=== PATIENT | female | born 1990 | race African-American/Black ===

== ENCOUNTER 2017-07-11 00:11 | Emergency (ER) | payer OTHER ==
[2017-07-11 00:17] VITALS: BP 120/81; BMI 19.1
--- NOTE | 2017-07-11 00:32 | DR.GENAD ---
HPI - PCP Primary Care Physician: DELLA - HPI Comment HPI Comment: HISTORY BELOW. - Complaint/Symptoms Chief Complaint Doctors Comments: ABDOMINAL PAIN, DIARRHEA AND NAUSEA TIMES 2 WEEKS. FEEL DISCOMFORT IN AREA. NO REDNESS OR DRAINAGE. PATIENT CONCERN IT MAY BE INFECTED. C- SECTION WAS DONE 06/26/2017. Chief Complaint:: "ON 877810, EMERGENCY C SECTION . INCISION SITE INFECTED. WARM , TENDER. HAVING DIARRHEA , NAUESA AND PAIN BC I GOT FOOD POISONING ON THE [id number]." - Nurses notes reviewed Nurses Notes Review: Yes - Source History Provided: Patient - Mode of Arrival Mode of Arrival: Wheelchair - Timing Onset of Chief Complaint: 07/11/17 Came on: Suddenly - Duration Duration: Constant Duration: Hours - Severity Severity: Moderate PMH - PMH Past Medical History: Yes Past Medical History: Hypertension, Seizures Past Surgical History: Yes Surgical History: , Cholecystectomy Past Surgical History Comment: OPEN HEART SURGERY AT 11 days old - Family History History of Family Medical Conditions: No - Social History Type of Tobacco Use: Cigarettes Alcohol Use: None Do you use any recreational Drugs:: No Lives With: Family Lives Where: Home - infectious screening Have you traveled outside the country in the last 6 months?: No Isolation: Standard ROS - Review of Systems Constitutional: No Symptoms Reported. negative: Chills, Fever Eyes: No Symptoms Reported ENTM: No Symptoms Reported Respiratoy: No Symptoms Reported Cardiovascular: No Symptoms Reported Gastrointestinal/Abdominal: Abdominal Pain, Diarrhea, Nausea Genitourinary: No Symptoms Reported Neurological: No Symptoms Reported Musculoskeletal: No Symptoms Reported Integumentary: Wound (INFECTION.) Hematologic/Lymphatic: No Symptoms Reported Endocrine: No Symptoms Reported All Other Systems: Reviewed and Negative PE - Vital Signs Vitals: Temperature 98.9 F Pulse Rate 95 Respiratory Rate 18 Blood Pressure 120/81 O2 Sat by Pulse Oximetry 97 - General Limitations: No Limitations General Appearance: Alert - Head Head Exam: Normal Inspection - Eyes Eye exam: Normal Appearance - ENT ENT Exam: Normal External Ear Exam External Ear Exam: Normal External Inspection TM/Canal Exam: Bilateral Normal Nose Exam: Normal Nose Exam Mouth Exam: Normal Inspection Throat Exam: Tonsillar Erythema - Neck Neck Exam: Normal Inspection - Chest Chest Inspection: Symmetric Chest Wall Rise - Respiratory Respiratory Exam: Normal Lung Sounds Bilat Respiratory Exam: Bilateral Clear to Auscultation - Cardiovascular Cardiovascular Exam: Regular Rate, Normal Rhythm, Normal Heart Sounds - Abdominal Exam Abdominal Exam: Normal Bowel Sounds, Soft, Tenderness Abdominal Tenderness: Diffuse, Mild, Other (C SECTION WOUND WITH STERI STRIP IN SOME AREA. NO REDNESS OR DRAINAGE NOTED. AREA SLIGHTLY TENDER.) - Extremities Extremities Exam: Normal Inspection - Back Back Exam: Normal Inspection - Neurologic Neurological Exam: Alert, Oriented X3 - Psychiatric Psychiatric Exam: Anxious - Skin Skin Exam: Normal Color MDM - Differential Diagnosis Differential Diagnosis: GASTROENTERITIS, ABDOMINAL PAIN, BOWEL OBSTRUCTION, FLU Course - Treatment Treatment: SEE ORDERS. - Reevaluation 1st: Improved - Education/Counseling Education/Counseling: Patient, Education Educated On: Treatment, Diagnosis, Needs for Follow Up ROR - Labs Reviewed Laboratory Results Reviewed?: Yes Result Diagrams: 07/11/17 01:00 07/11/17 01:00 Laboratory: 07/11/17 00:45 Stool - Final WBC 9.4 X10^3/uL (3.6-10.0) 07/11/17 01:00 RBC 3.89 X10^6/uL (3.5-5.4) 07/11/17 01:00 Hgb 11.7 g/dL (12.0-16.0) L 07/11/17 01:00 Hct 34.6 % (36.0-47.0) L 07/11/17 01:00 MCV 89.0 fL (80.0-100.0) 07/11/17 01:00 MCH 30.0 pg (27.0-34.0) 07/11/17 01:00 MCHC 33.8 g/dL (33.0-35.0) 07/11/17 01:00 RDW 13.5 % (11.6-16.5) 07/11/17 01:00 Plt Count 342 X10^3/uL (150.0-450.0) 07/11/17 01:00 MPV 7.9 fL (7.4-11.0) 07/11/17 01:00 Neut % 59.2 % (42.0-75.0) 07/11/17 01:00 Lymph % 28.5 % (21.0-51.0) 07/11/17 01:00 [place] % 8.1 % (0.0-13.0) 07/11/17 01:00 Eos % 3.1 % (0.9-2.9) H 07/11/17 01:00 Baso % 1.1 % (0.2-1.0) H 07/11/17 01:00 Neut # 5.6 x10^3/uL (2.2-4.8) H 07/11/17 01:00 Lymph # 2.7 X10^3/uL (1.3-2.9) 07/11/17 01:00 [place] # 0.8 x10^3/uL (0.3-0.8) 07/11/17 01:00 Eos # 0.3 x10^3/uL (0.0-0.2) H 07/11/17 01:00 Baso # 0.1 X10^3/uL (0.0-0.1) 07/11/17 01:00 Absolute Nucleated RBC 0.0 /100WBC 07/11/17 01:00 Sodium 139 mmol/L (136-145) 07/11/17 01:00 Corrected Sodium TNP 07/11/17 01:00 Potassium 3.9 mmol/L (3.5-5.1) 07/11/17 01:00 Chloride 105 mmol/L (98-107) 07/11/17 01:00 Carbon Dioxide 25.1 mmol/L (21-32) 07/11/17 01:00 BUN 11 mg/dL (7-18) 07/11/17 01:00 Creatinine 0.68 mg/dL (0.55-1.02) 07/11/17 01:00 Est GFR (MDRD) Af Amer > 60 (>60) 07/11/17 01:00 Est GFR (MDRD) Non-Af > 60 (>60) 07/11/17 01:00 Glucose 89 mg/dL (65-99) 07/11/17 01:00 Calcium 8.7 mg/dL (8.5-10.1) 07/11/17 01:00 Corrected Calcium 9.5 mg/dL (8.5-10.1) 07/11/17 01:00 Total Bilirubin 0.30 mg/dL (0.2-1.0) 07/11/17 01:00 AST 20 Units/L (15-37) 07/11/17 01:00 ALT 13 Units/L (12-78) 07/11/17 01:00 Alkaline Phosphatase 137 Units/L (46-116) H 07/11/17 01:00 Total Protein 7.3 g/dL (6.4-8.2) 07/11/17 01:00 Albumin 3.0 g/dL (3.4-5.0) L 07/11/17 01:00 Globulin 4.3 g/dL (2.5-4.5) 07/11/17 01:00 Albumin/Globulin Ratio 0.7 Ratio (1.1-2.1) L 07/11/17 01:00 Specimen Type Clean catch urine 07/11/17 02:39 Urine Color Yellow (YELLOW) 07/11/17 02:39 Urine Appearance Clear (CLEAR) 07/11/17 02:39 Urine pH 7.0 (5.0 - 8.0) 07/11/17 02:39 Ur Specific [place] 1.010 (1.000-1.030) 07/11/17 02:39 Urine Protein Negative (NEGATIVE) 07/11/17 02:39 Urine Glucose (UA) Negative (NEGATIVE) 07/11/17 02:39 Urine Ketones Negative (NEGATIVE) 07/11/17 02:39 Urine Occult Blood 2+ (NEGATIVE) 07/11/17 02:39 Urine Nitrite Negative (NEGATIVE) 07/11/17 02:39 Urine Bilirubin Negative (NEGATIVE) 07/11/17 02:39 Urine Urobilinogen Normal (NORMAL) 07/11/17 02:39 Ur Leukocyte Esterase 1+ (NEGATIVE) 07/11/17 02:39 Urine RBC Rare /HPF (NEGATIVE) 07/11/17 02:39 Urine WBC 0-2 /HPF (NEGATIVE) 07/11/17 02:39 Ur Squamous Epith Cells Few /HPF (NEGATIVE) 07/11/17 02:39 Urine Bacteria Trace /HPF (NEGATIVE) 07/11/17 02:39 Ur Culture Indicated? No/not indicated 07/11/17 02:39 Stool Description 50 g liquid/brown 07/11/17 00:45 Stl Occult Blood (IFOB) Negative (NEGATIVE) 07/11/17 00:45 Stool for White Cells Negative (NEGATIVE) 07/11/17 00:45 Stl C. diff Tox B Gene Negative (NEGATIVE) 12/24/17 00:45 Stl C. diff [id number] Negative (NEGATIVE) 07/11/17 00:45 Cryptosporid parvum Ag Negative (NEGATIVE) 07/11/17 00:45 E. histolytica Antigen Negative (NEGATIVE) 07/11/17 00:45 Giardia lamblia Ag Negative (NEGATIVE) 07/11/17 00:45 - XRAY XRAY Interpreted by: Radiologist XRAY Findings: REPORT DISCUSS WITH PATIENT. - Diagnosis Discharge Problem: Gastroenteritis, Nausea Abdominal pain Qualifiers: Abdominal location: generalized Qualified Code(s): R10.84 - Generalized abdominal pain Diarrhea Qualifiers: Diarrhea type: unspecified type Qualified Code(s): R19.7 - Diarrhea, unspecified - Discharge Plan Condition: Stable Prescriptions: Dicyclomine HCl [Bentyl Cap 10 mg] 10 mg PO TID PRN #15 cap PRN Reason: Diphenoxylate/Atropine [Lomotil] 1 tab PO TID #21 tab Ondansetron [Zofran ODT 8 mg] 8 mg PO Q8H PRN #12 tab PRN Reason: Nausea/Vomiting - Follow ups/Referrals Follow ups/Referrals: [facility],None [Primary Care Provider] - 3 days - Instructions Instructions: Viral Gastroenteritis, Adult, [id number], Abdominal Pain, Adult , [id number] Additional Instructions: RETURN TO ED IF WORSE.
[2017-07-11 01:11] LABS: BASOPHILS # (AUTO) 0.1 X10^3/uL (0.0-0.1); BASOPHILS % (AUTO) 1.1 % (0.2-1.0); EOSINOPHILS # (AUTO) 0.3 x10^3/uL (0.0-0.2); EOSINOPHILS % (AUTO) 3.1 % (0.9-2.9); HEMATOCRIT 34.6 % (36.0-47.0); HEMOGLOBIN 11.7 g/dL (12.0-16.0); LYMPHOCYTES # (AUTO) 2.7 X10^3/uL (1.3-2.9); LYMPHOCYTES % (AUTO) 28.5 % (21.0-51.0); MEAN CORPUSCULAR HGB CONC 33.8 g/dL (33.0-35.0); MEAN PLATELET VOLUME 7.9 fL (7.4-11.0); MONOCYTES # (AUTO) 0.8 x10^3/uL (0.3-0.8); MONOCYTES % (AUTO) 8.1 % (0.0-13.0); NEUTROPHILS # (AUTO) 5.6 x10^3/uL (2.2-4.8); NEUTROPHILS % (AUTO) 59.2 % (42.0-75.0); PLATELET COUNT 342 X10^3/uL (150.0-450.0); RED BLOOD COUNT 3.89 X10^6/uL (3.5-5.4); RED CELL DISTRIBUTION WIDTH 13.5 % (11.6-16.5); WHITE BLOOD COUNT 9.4 X10^3/uL (3.6-10.0)
[2017-07-11 01:24] LABS: ALANINE AMINOTRANSFERASE 13 Units/L (12-78); ALKALINE PHOSPHATASE 137 Units/L (46-116); ASPARTATE AMINO TRANSFERASE 20 Units/L (15-37); BLOOD UREA NITROGEN 11 mg/dL (7-18); CALCIUM 8.7 mg/dL (8.5-10.1); CARBON DIOXIDE 25.1 mmol/L (21-32); CHLORIDE 105 mmol/L (98-107); COR CA(FOR HYPOALB) 9.5 mg/dL (8.5-10.1); CREATININE 0.68 mg/dL (0.55-1.02); SODIUM 139 mmol/L (136-145); TOTAL PROTEIN 7.3 g/dL (6.4-8.2); eGFR BLACK RACES > 60 (>60); eGFR NON BLACK RACES > 60 (>60)
[2017-07-11 01:30] LABS: STOOL FOR WBC NEGATIVE (NEGATIVE)
--- NOTE | 2017-07-11 01:37 | RAD ---
Acute abdomen series three views Indication: History of recent with possible infection. Diarrhea and nausea. Findings: Chest radiograph is normal without pneumothorax, effusion or consolidation. Cholecystectomy clips noted. Gas and stool are seen in the colon. There is no free air or pneumatosis . No dilated loop of small bowel identified. Impression: No high-grade obstruction, free air or pneumatosis. Reported By:
[2017-07-11] MEDS ORDERED: TORADOL 60 MG VIAL IM ONE (01:55)
[2017-07-11] MEDS ORDERED: PEPCID TAB 20 MG PO ONE (01:55)
[2017-07-11] MEDS ORDERED: TORADOL 60 MG VIAL ONE (02:04)
[2017-07-11] MEDS ORDERED: PEPCID TAB 20 MG ONE (02:05)
[2017-07-11 03:05] LABS: BILIRUBIN,URINE NEGATIVE (NEGATIVE); BLOOD/HEMOGLOBIN,URINE 2+ (NEGATIVE); GLUCOSE, URINE NEGATIVE (NEGATIVE); KETONES,URINE NEGATIVE (NEGATIVE); LEUKOCYTE ESTERASE ,URINE 1+ (NEGATIVE); NITRITES,URINE NEGATIVE (NEGATIVE); PROTEIN,URINE NEGATIVE (NEGATIVE); UROBILINOGEN,URINE NORMAL (NORMAL)
[2017-07-11 03:18] LABS: CRYPTOSPORIDIUM PARVUM ANTIGEN NEGATIVE (NEGATIVE); GIARDIA LAMBLIA ANTIGEN NEGATIVE (NEGATIVE)
[2017-07-11 03:19] LABS: APPEARANCE,URINE CLEAR (CLEAR); BACTERIA,URINE TRACE /HPF (NEGATIVE); COLOR,URINE YELLOW (YELLOW); RBC,URINE RARE /HPF (NEGATIVE); SQUAMOUS EPITHELIAL CELL,UR FEW /HPF (NEGATIVE)
== END 2017-07-11 03:43 | disposition home or self-care (01) ==
LOC: ER 00:11
DX: K52.89 Other specified noninfective gastroenteritis and colitis (principal); R11.0 Nausea; R10.84 Generalized abdominal pain; R19.7 Diarrhea, unspecified
CPT/HCPCS: 36415; 74022; 80053; 81001; 82270; 83630; 85025; 87045; 87328; 87329; 87336; 87427; 87493; 87899; 96372; 99283; J1885